=== PATIENT | female | born 2000 | race Caucasian/White ===

== ENCOUNTER 2021-03-26 13:58 | Emergency (ER) | payer MEDICAID ==
[~2021-03-26] VITALS: Ht 160 cm; Wt 56.2 kg
[2021-03-26 14:00] VITALS: BP_SYST 126
[2021-03-26 14:36] LABS: BILIRUBIN,URINE NEGATIVE (NEGATIVE); BLOOD, URINE NEGATIVE (NEGATIVE); CLARITY/URINE CLEAR (CLEAR); COLOR,URINE YELLOW (YELLOW); GLUCOSE,URINE NEGATIVE (NEGATIVE); KETONES,URINE NEGATIVE (NEGATIVE); LEUKOCYTE ESTERASE ,URINE NEGATIVE (NEGATIVE); NITRITE, URINE NEGATIVE (NEGATIVE); PROTEIN URINE NEGATIVE (NEGATIVE); UROBILINOGEN,URINE 0.2 (0.2-1.0)
[2021-03-26] MEDS ORDERED: METR500T PO (15:43)
[2021-03-26 15:52] VITALS: BP_SYST 126
[2021-03-27 22:06] LABS: CHLAMYDIA TRACHOMATIS NAA Negative (Negative); NEISSERIA GONORRHOEAE NAA Negative (Negative)
== END 2021-03-26 15:53 | disposition home or self-care (01) ==
LOC: SED 13:58
DX: N76.0 Acute vaginitis (principal)
CPT/HCPCS: 81003; 81025; 87210-TC; 87491; 87591; 99283